=== PATIENT | female | born 1935 | race Caucasian/White ===

== ENCOUNTER 2023-12-24 08:13 | Day surgery (SDC) | payer MEDICARE, MEDICAID ==
[2023-12-23 12:40] LABS: BASOPHILS % (AUTO) 0.5 % (0-1); EOSINOPHILS # (AUTO) 0.1 X10'3 (0-0.9); EOSINOPHILS % (AUTO) 1.1 % (0-6); HEMATOCRIT 41.3 % (35.0-45.0); HEMOGLOBIN 13.3 g/dl (12.0-16.0); LYMPHOCYTES # (AUTO) 1.1 X10'3 (1.1-4.8); LYMPHOCYTES % (AUTO) 14.4 % (21-51); MEAN CORPUSCULAR HEMOGLOBIN 29.7 PG (27.0-31.0); MEAN CORPUSCULAR HGB CONC 32.3 g/dL (33.0-36.5); MEAN CORPUSCULAR VOLUME 91.9 FL (78-98); MEAN PLATELET VOLUME 8.5 FL (7.4-10.4); MONOCYTES # (AUTO) 0.4 X10'3 (0-0.9); MONOCYTES % (AUTO) 5.3 % (2-12); NEUTROPHILS # (AUTO) 5.9 X10'3 (1.8-7.7); NEUTROPHILS % (AUTO) 78.7 % (42-75); PLATELET COUNT 194 X10'3 (140-440); RED CELL DISTRIBUTION WIDTH 14.4 % (11.5-14.5); WHITE BLOOD COUNT 7.5 X10'3 (4.5-11.0)
[2023-12-23 13:00] LABS: ALBUMIN 3.6 G/DL (3.4-5.0); ANION GAP 6 (8-16); BLOOD UREA NITROGEN 19 MG/DL (7-18); BUN/CREATININE RATIO 21.8 (10.0-20.0); CALCIUM 9.1 MG/DL (8.5-10.1); CHLORIDE 102 MMOL/L (99-107); CREATININE 0.87 MG/DL (0.40-0.90); GLUCOSE 188 MG/DL (70-104); POTASSIUM 4.5 MMOL/L (3.5-5.1); SODIUM 138 MMOL/L (135-145); TOTAL CARBON DIOXIDE 29.7 MMOL/L (24-32); eGFR 62 ML/MIN
[2023-12-23 13:02] LABS: APTT 27 SECONDS (22-32); INR 1.1 INR; PROTHROMBIN TIME 11.9 SECONDS (9.0-12.0)
[~2023-12-24] VITALS: Ht 154.9 cm; Wt 52.4 kg
[2023-12-24] VITALS (16 sets, daily range): BP systolic 97–150; BP diastolic 38–97; PULSE 73–86; RESP 13–16; TEMP 97.8; O2SAT 86–97
[~2023-12-24 08:13] MED LIST: ACET-75 PO; AMOX500C2 PO; ASPI-611 PO; ATOR40TA71 PO; ATRIN IH; CARB1TAB60 PO; CARV6.253 PO; CLOP75TA34 PO; DICL100G59 TOP; DULA0.75 SUBCUT; ERTU15TA PO; LOPE-190 PO; LOSA-415 PO; MIRA50TA PO; MONT-40 PO; MUPI22OI30 TOP; NITR0.4T51 SL; NYSPWD TP; OMEP20CA16 PO; PREG100C PO; SERT-433 PO; TRAM50TA2 PO
[2023-12-24] MEDS ORDERED: LOSA25TA41 PO (08:39)
[2023-12-24] MEDS ORDERED: iohexol 350 MG/ML 50ML vial IV ONE (08:42)
[2023-12-24] MEDS ORDERED: verapamil 2.5 mg/ml inj IV ONE (08:42)
[2023-12-24] MEDS ORDERED: LIDOcaine 1% (10mg/ml) 2ml vial ONE (08:42)
[2023-12-24] MEDS ORDERED: midazolam 1 mg/ML 2ml injection ONE (08:42)
[2023-12-24] MEDS ORDERED: fentaNYL/PF 50MCG/1 ML 2ML syringe ONE (08:42)
[2023-12-24] MEDS ORDERED: LIDOcaine 1% 30ml preserv. free vial ONE (08:43)
[2023-12-24] MEDS ORDERED: iohexol 350MG/ML 100ml bottle IV ONE ×2 (08:43→09:55)
[2023-12-24] MEDS ORDERED: heparin 1,000unit/ml 10ml vial 10 ML ONE (08:43)
[2023-12-24] MEDS ORDERED: IPRA30SP BOTHNARES (08:45)
[2023-12-24] MEDS ORDERED: MIRA25TA PO (08:45)
[2023-12-24] MEDS: LORazepam 0.5 MG tablet PO PRN (08:50)
[2023-12-24] MEDS: diphenhydrAMINE 25mg capsule PO PRN (08:50)
[2023-12-24] MEDS: normal saline 1,000 ML IV SCH (08:51)
[2023-12-24] MEDS ORDERED: nitroGLYCERIN 500mcg/5mL D5W 5 ML IV ONE ×2 (09:07→10:35)
[2023-12-24] MEDS ORDERED: heparin 25,000 UNIT/250ml bag 250 ML IV ONE (10:34)
[2023-12-24] MEDS ORDERED: clopidogrel 300mg tablet ONE (10:47)
[2023-12-24] MEDS ORDERED: aspirin 325mg tablet ONE (10:47)
[2023-12-24] MEDS ORDERED: hydrALAZINE 20mg/ml inj. IV ONE (10:50)
[2023-12-24] MEDS ORDERED: HYDROcodone/acetaminophen 5mg/325mg tablet PO PRN (14:20)
[2023-12-24] MEDS: HYDROcodone/acetaminophen 10/325mg tab PO PRN (14:40)
[2023-12-24] MEDS: fentaNYL/PF 50MCG/1 ML 2ML syringe IV ONE (15:31)
[2023-12-25] MEDS ORDERED: clopidogrel 75mg tablet PO SCH (08:00)
== END 2023-12-24 19:35 | disposition home or self-care (01) ==
LOC: SSTAY O 08:13
PROVIDERS: ATTEND Internal Medicine Cardiovascular Disease
DX: R94.39 Abnormal result of other cardiovascular function study (principal); I25.10 Atherosclerotic heart disease of native coronary artery without angina pectoris; I44.7 Left bundle-branch block, unspecified; I10 Essential (primary) hypertension; E11.9 Type 2 diabetes mellitus without complications; E78.5 Hyperlipidemia, unspecified; E66.9 Obesity, unspecified; I65.23 Occlusion and stenosis of bilateral carotid arteries; M79.7 Fibromyalgia; G47.30 Sleep apnea, unspecified; M19.90 Unspecified osteoarthritis, unspecified site; Z86.73 Personal history of transient ischemic attack (TIA), and cerebral infarction without residual deficits; Z79.82 Long term (current) use of aspirin; Z79.899 Other long term (current) drug therapy; Z95.5 Presence of coronary angioplasty implant and graft; Z96.643 Presence of artificial hip joint, bilateral; Z96.653 Presence of artificial knee joint, bilateral; Z98.890 Other specified postprocedural states; Z68.21 Body mass index [BMI] 21.0-21.9, adult
CPT/HCPCS: 36415; 76937; 80048; 82948; 85025; 85347; 85610; 85730; 93005; 93458; 99152; 99153; C1874; C9600; C9607; J0360; J1644; J2250; J3010; J3490; J7030; J7040; Q0163; Q9967; A4615; A4620; A6258; A6449; C1725; C1751; C1769; C1894